=== PATIENT | male | born 1975 | race Caucasian/White ===

== ENCOUNTER → 2016-03-12 | Outpatient (CLI) | payer OTHER ==
[~2016-03-12] VITALS: Ht 182.9 cm; Wt 115.7 kg
[~2016-03-12] MED LIST: BUPIVACAINE 0.25% 30 ML (SENSORCAINE) VIAL ONE; LIDOCAINE 1% INJ 20 ML (XYLOCAINE) VIAL ONE; TRIAMCINOLONE ACET (KENALOG-40) 40 MG/ML 1 ML VIAL ONE
--- OUTSIDE RECORDS SUMMARY | 2016-03-12 11:25 | XMS REPORT ---
Author Sunny Monterroso [facility] Address [address] [place], [place] [id number] Care Team Providers Care Forest And Conservation Worker Name Role Phone Sunny Nelson PCP Unavailable Allergies and Adverse Reactions Name Reaction Notes NO KNOWN DRUG ALLERGIES Plan of Treatment Not available. Medications Active Name Start Date Estimated Completion Date SIG Comments citalopram 40 mg oral tablet 06/19/2014 TAKE ONE TABLET BY MOUTH ONCE DAILY citalopram 40 mg oral tablet 12/26/2014 TAKE ONE TABLET BY MOUTH ONCE DAILY baclofen 10 mg oral tablet take 1 tablet (10 mg) by oral route 3 times per day Vivlodex 10 mg oral capsule take 1 capsule (10 mg) by oral route once daily Name Start Date Expiration Date SIG Comments Keflex 500 mg oral capsule 08/18/2009 08/28/2009 take 1 capsule (500 mg) by oral route every 6 hours for 10 days lindane 1 % topical lotion 08/03/2010 08/04/2010 apply in a thin layer (30-60 mL) to dry skin (rub in thoroughly) by topical route once leave lotion on for 8- 12 hours and then remove by thorough washing citalopram 40 mg oral tablet 08/03/2010 01/30/2011 TAKE ONE TABLET BY MOUTH DAILY cephalexin 500 mg oral tablet 09/22/2011 09/29/2011 take 1 tablet (500 mg) by oral route every 12 hours for 7 days citalopram 40 mg oral tablet 01/03/2012 02/02/2012 TAKE ONE TABLET BY MOUTH DAILY citalopram 40 mg oral tablet 05/18/2013 11/14/2013 TAKE ONE TABLET BY MOUTH EVERY DAY cephalexin 500 mg oral capsule 07/20/2013 07/27/2013 take 1 capsule by oral route 4 times a day for 7 days prednisone 20 mg oral tablet 07/20/2013 07/28/2013 4x2 days 3x2 days 2x2 days 1x2 days Zithromax Z-Konrad 250 mg oral tablet 01/12/2014 take 2 tablets (500 mg) by oral route once daily for 1 day then 1 tablet (250 mg) by oral route once daily for 4 days prednisone 20 mg oral tablet 10/22/2014 10/30/2014 4x2 days 3x2 days 2x2 days 1x2 days Zithromax Z-Konrad 250 mg oral tablet 03/10/2015 03/15/2015 take 2 tablets (500 mg) by oral route once daily for 1 day then 1 tablet (250 mg) by oral route once daily for 4 days cephalexin 500 mg oral capsule 04/29/2015 05/06/2015 take 1 capsule by oral route 3 times a day for 7 days Medrol (Konrad) 4 mg oral tablets,dose pack 04/29/2015 05/04/2015 take as directed for 5 days Discontinued Name Start Date Discontinued Date SIG Comments doxycycline hyclate 100 mg oral capsule 08/30/2011 09/22/2011 take 1 capsule ( 100 mg) by oral route 2 times per day "did not fill" lindane 1 % topical lotion 03/27/2014 06/04/2015 apply in a thin layer (30-60 mL) to dry skin (rub in thoroughly) by topical route once leave on for 8-12 hr, then remove by thorough washing triamcinolone acetonide 0.1 % topical cream 10/22/2014 06/04/2015 apply to affected area(s) by topical route 2 times a day Problem List Description Status Onset Seasonal Allergies Active Vital Signs Date Time BP-Sys(mm[Hg] BP-Cherise(mm[Hg]) HR(bpm) RR(rpm) Temp WT HT HC BMI BSA BMI Percentile O2 Sat(%) 06/04/2015 11:24:00 AM 150 mmHg 82 mmHg 75 bpm 16 rpm 96.3 F 97 % 04/10/2015 11:25:00 AM 142 mmHg 78 mmHg 85 bpm 18 rpm 98.7 F 257 lbs 72 in 34.8551 kg/m 2.4335 m 97 % 01/03/2015 10:22:00 AM 150 mmHg 82 mmHg 84 bpm 16 rpm 97.8 F 253 lbs 72 in 34.31 kg/m2 2.41 m2 97 % 10/29/2014 9:36:00 AM 120 mmHg 72 mmHg 86 bpm 18 rpm 98.4 F 256 lbs 72 in 34.7195 kg/m 2.4288 m 98 % 10/25/2014 11:12:00 AM 140 mmHg 85 mmHg 80 bpm 18 rpm 98.5 F 257 lbs 72 in 34.86 kg/m2 2.43 m2 99 % 02/26/2014 2:33:00 PM 136 mmHg 74 mmHg 90 bpm 20 rpm 98.2 F 255 lbs 71 in 35.5649 kg/m 2.4071 m 98 % 01/15/2014 10:23:00 AM 136 mmHg 78 mmHg 88 bpm 20 rpm 97 F 253 lbs 71 in 35.29 kg/m2 2.40 m2 97 % 01/11/2014 9:46:00 AM 138 mmHg 78 mmHg 110 bpm 22 rpm 97.8 F 253 lbs 71 in 35.286 kg/m 2.3977 m 98 % 03/15/2013 5:01:00 PM 120 mmHg 72 mmHg 80 bpm 24 rpm 98.8 F 250 lbs 72 in 33.91 kg/m2 2.40 m2 99 % 09/15/2012 8:14:00 AM 128 mmHg 82 mmHg 99 bpm 16 rpm 96.6 F 249 lbs 71 in 34.7281 kg/m 2.3786 m 98 % 04/18/2012 2:26:00 PM 120 mmHg 66 mmHg 86 bpm 16 rpm 97.1 F 245 lbs 71 in 34.17 kg/m2 2.36 m2 99 % 04/06/2012 3:32:00 PM 130 mmHg 70 mmHg 88 bpm 18 rpm 97.2 F 245 lbs 71 in 34.1702 kg/m 2.3595 m 98 % 02/21/2012 11:47:00 AM 130 mmHg 72 mmHg 90 bpm 20 rpm 97 F 246 lbs 71 in 34.31 kg/m2 2.36 m2 98 % 02/17/2012 2:59:00 PM 130 mmHg 80 mmHg 100 bpm 16 rpm 97.9 F 246 lbs 72 in 33.3633 kg/m 2.3809 m 97 % 09/22/2011 11:08:00 AM 122 mmHg 78 mmHg 70 bpm 18 rpm 98.8 F 250 lbs 71 in 34.87 kg/m2 2.38 m2 08/30/2011 3:57:00 PM 118 mmHg 73 mmHg 80 bpm 20 rpm 6.9 F 246.437 lbs 71.7 in 33.7029 kg/m 2.378 m 04/13/2011 8:37:00 AM 128 mmHg 70 mmHg 72 bpm 18 rpm 98.2 F 242 lbs 71.7 in 33.10 kg/m2 2.36 m2 08/03/2010 2:44:00 PM 120 mmHg 78 mmHg 80 bpm 226 lbs Social History Name Description Comments Tobacco Never smoker Alcohol Use some college Active but no formal exercise Uses seatbelts History of Procedures Date Ordered Description Order Status 01/03/2015 12:00 AM Decadron, Per 1 Mg [facility]# [address]-88 Reviewed 01/03/2015 12:00 AM Depo-Medrol, Per 80 Mg [facility]#5084-3813-72 Reviewed 01/03/2015 12:00 AM Rocephin 1 gram [facility]#9993-3812-24 Reviewed 04/13/2011 12:00 AM X-RAY EXAM L-S SPINE /3 VWS Reviewed 04/13/2011 12:00 AM URINALYSIS AUTO W/O SCOPE Reviewed 02/17/2012 12:00 AM THER/PROPH/DIAG INJ SC/IM Reviewed 02/17/2012 12:00 AM Decadron, Per 1 Mg ND# [address]-08 Reviewed 02/17/2012 12:00 AM Depo-Medrol, Per 80 Mg ND#1850-4170-27 Reviewed 02/17/2012 12:00 AM Rocephin 1 gram [facility]#0678-6287-88 Reviewed 02/21/2012 12:00 AM THER/PROPH/DIAG INJ SC/IM Reviewed 02/21/2012 12:00 AM Decadron, Per 1 Mg ND# [address]-77 Reviewed 02/21/2012 12:00 AM Depo-Medrol, Per 80 Mg ND#6982-9291-67 Reviewed 02/21/2012 12:00 AM Rocephin 1 gram [facility]#0503-5119-86 Reviewed 04/06/2012 12:00 AM URINALYSIS AUTO W/O SCOPE Reviewed 04/06/2012 12:00 AM URINALYSIS AUTO W/O SCOPE Reviewed 04/18/2012 12:00 AM DESTRUCT PREMALG LESION Reviewed 09/15/2012 12:00 AM THER/PROPH/DIAG INJ SC/IM Reviewed 09/15/2012 12:00 AM Decadron, Per 1 Mg ND# [address]-09 Reviewed 09/15/2012 12:00 AM Depo-Medrol, Per 80 Mg ND#0421-7362-79 Reviewed 01/11/2014 12:00 AM IMMUNIZATION ADMIN Reviewed 01/11/2014 12:00 AM THER/PROPH/DIAG INJ SC/IM Reviewed 01/11/2014 12:00 AM Decadron, Per 1 Mg ND# [address]-40 Reviewed 01/11/2014 12:00 AM Depo-Medrol, Per 80 Mg ND#1611-2607-12 Reviewed 01/11/2014 12:00 AM Rocephin 1 gram ND#8671-0367-93 Reviewed 10/25/2014 12:00 AM Decadron, Per 1 Mg ND# [address]-00 Reviewed 10/25/2014 12:00 AM Depo-Medrol, Per 80 Mg NDC#1113-2861-98 Reviewed 10/29/2014 12:00 AM Decadron, Per 1 Mg [facility]# [address]-79 Reviewed Results Summary Not available. History Of Immunizations Not available. History of Past Illness Name Date of Onset Comments Seasonal Allergies Depressive Disorder Aug 03 2010 2:43PM Scabies Aug 03 2010 2:43PM Pre-employment Physical - [employer] Apr 13 2011 8:40AM Superficial injury of trunk; insect bite, nonvenomous, infected Aug 30 2011 4 :01PM Laceration 2nd digit right hand Sep 22 2011 11:10AM Pharyngitis, Acute Feb 17 2012 3:00PM Fever Feb 17 2012 3:00PM Cough Feb 21 2012 11:48AM Post-nasal drainage Feb 21 2012 11:48AM Upper Respiratory Infection Feb 21 2012 11:48AM DOT Physical Apr 06 2012 3:32PM Benign Keratosis Apr 18 2012 2:25PM Viral Syndrome Sep 15 2012 8:16AM Open wound of wrist; without mention of complication Mar 16 2013 3:00PM Bronchitis, Acute Jan 11 2014 9:46AM Upper Respiratory Infection Jan 11 2014 9:46AM Bronchitis, Acute Jan 15 2014 10:24AM Influenza Jan 15 2014 10:24AM Scabies Feb 26 2014 2:33PM Contact Dermatitis Oct 25 2014 11:13AM Contact Dermatitis Oct 29 2014 9:36AM Moderate Acute Cough Worsening Jan 03 2015 10:22AM Acute pharyngitis, unspecified etiology Jan 03 2015 10:22AM Moderate Acute Post-nasal drainage Jan 03 2015 10:22AM Moderate Chronic Hip joint painful on movement, right Apr 10 2015 11:26AM Moderate Chronic Cervicalgia Apr 10 2015 11:26AM Intractable headache, unspecified chronicity pattern, unspecified headache type Apr 10 2015 11:26AM Desires vasectomy Jun 04 2015 11:26AM Payers Insurance Name Company Name Plan Name Plan Number Policy Number Policy Group Number Start Date Aetna Aetna [facility] [id number] N/A [employer] [id number] N/A [employer] [facility] [id number] Wednesday, 2011 [facility] [id number] Wednesday, April 13, 2011 [facility] [id number] N/A [facility] [id number] Wednesday, September 21, 2011 [employer] [facility] [id number] N/A [facility] [id number] N/A History of Encounters Visit Date Visit Type Provider 06/04/2015 Office visit Sunny Nelson MD 04/10/2015 Office visit SUNNY AN 01/03/2015 Office visit SUNNY NA 10/29/2014 Office visit SUNNY AN 10/25/2014 Office visit SUNNY AN 02/26/2014 Office visit SUNNY AN 01/15/2014 Office visit SUNNY AN 01/11/2014 Office visit 01/11/2014 Office visit SUNNY AN 03/15/2013 Office visit SUNNY AN 09/15/2012 Office visit SUNNY AN 04/18/2012 Office visit SUNNY AN 04/06/2012 Office visit SUNNY AN 02/21/2012 Office visit SNUNY AN 02/17/2012 Office visit SUNNY AN 09/22/2011 Office visit Edgardo Patel DO 08/30/2011 Office visit SUNNY AN 04/13/2011 Office visit Edgardo Patel DO 08/03/2010 Office visit Sunny Law PA-C 11/27/2008 Office visit Sunny Law PA-C
[2016-03-12 11:36] VITALS: BP 140/90
--- NOTE | 2016-03-12 13:59 | Pain Medicine-Procedure ---
Procedure Pre-Op/Post-Op Diagnosis Diagnosis: disc disorder with radiculopathy, lumbar Indications for Operation Low back and hip pain Attending Surgeon Agus Procedure Date of Service: Mar 12, 2016 Procedure: Lumbar Epidural Steroid Injection at the L5/S1 Level under Fluoroscopic Guidance and right sacroiliac joint injection Procedure: Patient was identified in the holding area. After risks, benefits, and alternatives were discussed with the patient, informed consent was obtained. Patient was brought to the fluoroscopy suite and placed prone on the procedure room table. A time out was performed. Vital signs were monitored throughout the procedure. The patients low back was prepped and draped in the usual sterile fashion. The patients skin was anesthetized using 2% Lidocaine. A Tuohy needle was inserted and advanced to the L5-S1 epidural space under fluoroscopic guidance using the loss of resistance technique and intermittent projection of fluoroscopy. There was no paresthesia with needle placement. The needle position was confirmed in both the AP and lateral view. After negative aspiration 2ml of non-ionic contrast was injected under live fluoroscopy which showed good spread of the contrast in the epidural space at the appropriate level, there was no intravascular or subarachnoid spread. Again, after negative aspiration for heme or CSF, 2 ml of 0.25% Bupivicaine, 2ml of preservative free normal saline, and 80mg of Kenalog was injected. The needle was removed and a sterile bandage was placed. Attention was then directed to the right sacroiliac joint which was identified under fluoroscopic guidance. The skin overlying the posterior inferior one third of the sacroiliac joint was anesthetized with 1 percent lidocaine and a 22 -gauge 3-1/2 inch needle was inserted and advanced into the joint. Following negative aspiration a total of 40 mg of Kenalog and 2 mL of 0.25 percent bupivacaine was injected. Needle was flushed with lidocaine and removed. Sterile bandage was applied. Patient tolerated the procedures well with no apparent complications. Complications None TK PADILLA MD Mar 12, 2016 1:59 pm
== END ==
LOC: CARD 11:20
PROVIDERS: ATTEND Pain Medicine Pain Medicine
DX: M51.16 Intervertebral disc disorders with radiculopathy, lumbar region (principal); M53.3 Sacrococcygeal disorders, not elsewhere classified; M50.13 Cervical disc disorder with radiculopathy, cervicothoracic region; Z79.899 Other long term (current) drug therapy
CPT/HCPCS: 27096; 62323